=== PATIENT | male | born 1970 | race Asian ===

== ENCOUNTER 2017-03-28 07:53 | Day surgery (SDC) | payer BC ==
[2017-03-25 17:06] VITALS: BMI 22.7
[2017-03-28] VITALS (9 sets, daily range): BP systolic 119–142; BP diastolic 67–79; PULSE 86–102; RESP 15–16; Ht 177.8 cm; Wt 72.0 kg
[~2017-03-28] VITALS: Ht 177.8 cm; Wt 72.0 kg
[~2017-03-28 07:53] MED LIST: SEVOFLURANE 15 MIN ONE
[2017-03-28] MEDS ORDERED: ATOR10TA65 PO (08:25)
[2017-03-28 08:58] LABS: BASOPHILS % 0.4 % (0.0-2.0); EOSINOPHILS # 0.1 10^3/ul (0.0-0.5); EOSINOPHILS % 0.6 % (0.0-7.0); HEMATOCRIT 42.4 % (42.0-52.0); HEMOGLOBIN 14.6 g/dl (14.0-18.0); LYMPHOCYTES # 1.4 10^3/ul (0.8-2.9); LYMPHOCYTES % 14.9 % (15.0-51.0); MEAN CORPUSCULAR HEMOGLOBIN 31.2 pg (29.0-33.0); MEAN CORPUSCULAR HGB CONC 34.4 g/dl (32.0-37.0); MEAN CORPUSCULAR VOLUME 90.6 fl (82.0-101.0); MEAN PLATELET VOLUME 9.7 fl (7.4-10.4); MONOCYTE # 0.9 10^3/ul (0.3-0.9); MONOCYTES % 9.6 % (0.0-11.0); NEUTROPHILS % 74.3 % (39.0-77.0); PLATELET COUNT 267 10^3/UL (140-415); RED BLOOD COUNT 4.68 10^6/ul (4.70-6.10); RED CELL DISTRIBUTION WIDTH 13.2 % (11.5-14.5); WHITE BLOOD COUNT 9.4 10^3/ul (4.8-10.8)
[2017-03-28] MEDS ORDERED: CEFAZOLIN 2 GM/50 ML (PMX) 50 ML IVPB ONE (09:00)
[2017-03-28] MEDS ORDERED: SOD CHLORIDE 0.9% 1,000 ML IV SCH (09:00)
[2017-03-28 09:14] LABS: INR 1.11; PROTIME 14.3 Sec (12.2-14.2); PT RATIO 1.1
[2017-03-28 09:15] LABS: PARTIAL THROMBOPLASTIN TIME 28.2 Sec (25.0-35.0)
[2017-03-28 09:20] LABS: ALBUMIN 4.6 g/dl (3.3-4.9); ALBUMIN/GLOBULIN RATIO 1.35; BILIRUBIN,INDIRECT 0.3 mg/dl (0-1.1); BILIRUBIN,TOTAL 0.3 mg/dl (0.2-1.3)
[2017-03-28 09:29] LABS: CALCIUM 9.3 mg/dl (8.4-10.2); CREATININE 0.7 mg/dl (0.61-1.24)
[2017-03-28] MEDS ORDERED: BUPIVACAINE 0.25% (MPF) 10 ML 10 ML VIAL ONE ×2 (10:16→10:24)
[2017-03-28] MEDS ORDERED: LIDOCAINE 1% (MDV) 20 ML INJ ONE (10:17)
[2017-03-28] MEDS ORDERED: MIDAZOLAM 1 MG/ML 2 ML INJ ONE (10:30)
[2017-03-28] MEDS ORDERED: LIDOCAINE 2% (SDV) 5 ML INJ ONE (10:30)
[2017-03-28] MEDS ORDERED: PROPOFOL 20 ML ONE (10:30)
[2017-03-28] MEDS ORDERED: SUCCINYLCHOLINE CHLORIDE 100 MG/5 ML SYG IV ONE (10:30)
[2017-03-28] MEDS ORDERED: ONDANSETRON 4 MG INJ ONE ×2 (10:47→10:52)
[2017-03-28] MEDS ORDERED: DEXAMETHASONE 4 MG/ML 1 ML INJ ONE (10:47)
[2017-03-28] MEDS ORDERED: CEFAZOLIN 1 GM INJ ONE (10:47)
[2017-03-28] MEDS ORDERED: ONDANSETRON 4 MG INJ IV PRN ×2 (11:30→12:00)
[2017-03-28] MEDS ORDERED: IBUPROFEN 600 MG TAB PO PRN (11:30)
--- NOTE | 2017-03-28 11:36 | OPR ---
Date/Time of Note Date/Time of Note DATE: 03/28/17 TIME: 11:30 Operative Report Procedure Date: Mar 28, 2017 Preoperative Diagnosis 1. Upper back mass 2. Lower back mass Postoperative Diagnosis 1. Upper back mass 2. Lower back mass Operation Performed 1. Excision of upper back mass, subfascial, 4.5 cm 2. Excision of lower back mass 2 cm Surgeon see signature line Anesthesia Type: general Anesthesiologist: CLARE ALVAREZ DO Estimated Blood Loss: minimal Transfusion Required: no Specimens 1. Upper back mass 2. Lower back mass Grafts/Implants: none Complications: no Pt Condition Post Procedure: stable Disposition: PACU Indications Patient is a 46-year-old gentleman who presented to the office complaining of an upper back mass and also lower back mass. These have been present for at least a year. They have been enlarging and causing increasing discomfort. The patient was scheduled for elective excision for symptom relief and definitive pathological diagnosis. All risks and benefits of the procedure including, but not limited to: Wound infection, excessive bleeding, postoperative seroma/ hematoma formation, mass recurrence, etc. were all explained to the patient in full detail. He fully understood and wished to proceed with the procedure. Informed consent was obtained. Operative\Procedure Findings Upper back mass consistent with lipoma. Lower back mass consistent with sebaceous cyst. Procedure Description The patient was brought to the operating room and placed supine on the operating table. Bilateral sequential compression devices were placed on both lower extremities. A dose of broad-spectrum perioperative intravenous antibiotics was given. After the induction of smooth general anesthesia the patient was positioned in the prone position. Both masses were preoperatively marked and confirmed with the patient in the holding area. The back was then prepped and draped in standard surgical fashion. After performance of the surgical timeout attention was turned first to the upper back mass. 0.25% Marcaine was injected in a radial fashion around the mass creating a field block. An incision was then made over the mass transversely using a 15 blade scalpel. Incision was carried down through the skin and subcutaneous tissues. The fascia was reached and incised. A subfascial lipomatous mass was identified. It was dissected free of surrounding tissues, transected at its base, and passed off the field as specimen. It measured approximately 4.5 cm in maximal dimension. Hemostasis was then inspected for and noted to be total. The wound cavity was irrigated with warm saline. The wound was then reapproximated in layers using interrupted 3-0 Vicryl sutures for the dermal and fascial layers. The skin was then reapproximated using 4-0 Monocryl suture in a running subcuticular fashion. Further local anesthesia was applied around the skin and the incision site. Incision was cleaned and Dermabond was applied. Attention was then turned towards the lower back mass. 0.25% Marcaine was injected in a radial fashion creating a field block. There is a punctate sinus in the middle of the mass. An elliptical incision was made in the skin using a 15 blade scalpel to include the sinus. Incision was carried down sharply through the dermis. A mass consistent with sebaceous cyst was identified. It was dissected free of surrounding tissues using Metzenbaum scissors, transected space, and passed off the field as specimen. It measured approximately 2 cm in maximal dimension. Hemostasis was then inspected for and noted to be total. The wound was then closed in layers using interrupted 3-0 Vicryl suture for the dermal layer. The skin was reapproximated using interrupted 3-0 nylon sutures. Further local anesthesia was applied around the skin of the incision site. Incision was clean and sterile dressings were applied. The patient was then awoken from anesthesia and transferred to the recovery room in stable condition. All counts were correct at the end of the case 2. ADILENE BUTTS MD Mar 28, 2017 11:36
[2017-03-28] MEDS ORDERED: MEPERIDINE 25 MG INJ IV PRN (12:00)
[2017-03-28] MEDS ORDERED: DIPHENHYDRAMINE 50 MG INJ IV PRN (12:00)
[2017-03-28] MEDS ORDERED: HYDROmorphONE (0.2 MG/ML) 10ML SYG IV PRN ×2 (12:00)
== END 2017-03-28 13:12 | disposition home or self-care (01) ==
LOC: SDS 07:53
PROVIDERS: ATTEND Surgery
DX: D17.1 Benign lipomatous neoplasm of skin and subcutaneous tissue of trunk (principal); L72.0 Epidermal cyst
CPT/HCPCS: 11406; 80053; 85025; 85610; 85730; 88307; J0690; J1100; J2175; J2250; J2405; Z7512; Z7610; J7999